=== PATIENT | male | born 1950 ===

== ENCOUNTER 2020-05-26 18:22 | Outpatient (NON) | payer MEDICARE, SELFPAY ==
[2020-05-26 18:51] LABS: Basophils Absolute Auto 0.04 K/mm3 (0.00-0.10); Basophils Percent Auto 0.4 % (0.0-1.0); Eosinophils Percent Auto 2.9 % (1.0-6.0); Hematocrit 33.1 % (37.0-46.0); Hemoglobin 9.7 g/dL (12.4-15.3); Immature Granulocyte Absolute 0.04 K/mm3 (0.00-0.00); Immature Granulocyte Percent A 0.4 % (0.0-0.0); Lymphocytes Absolute Auto 1.89 K/mm3 (1.10-4.50); Lymphocytes Percent Auto 18.5 % (18.0-42.0); Mean Corpuscular HGB Conc 29.3 g/dL (32.0-36.0); Mean Corpuscular Hemoglobin 25.4 pg (27.0-31.0); Mean Corpuscular Volume 86.6 fL (78.0-102.0); Monocytes Absolute Auto 1.04 K/mm3 (0.10-0.90); Monocytes Percent Auto 10.2 % (2.0-11.0); Neutrophils Absolute Auto 6.9 K/mm3 (1.7-7.2); Neutrophils Percent Auto 67.6 % (50.0-70.0); Platelet Count Result 361 K/mm3 (150-420); Red Blood Count 3.82 M/mm3 (4.70-6.10); Red Cell Distribution Width 18.2 % (11.6-14.4); White Blood Count 10.2 K/mm3 (4.8-10.8)
[2020-05-26 19:04] LABS: Alanine Aminotransferase 41 U/L (16-63); Albumin Level 2.5 g/dL (3.4-5.0); Alkaline Phosphatase 94 U/L (46-116); Anion Gap 13 mmol/L (8-16); Aspartate Amino Transferase 24 U/L (15-37); Bilirubin,Total 0.4 mg/dL (0.00-1.00); Blood Urea Nitrogen 19 mg/dL (7-18); Calcium 8.4 mg/dL (8.5-10.1); Carbon Dioxide 22 mmol/L (21-32); Chloride 102 mmol/L (98-108); Estimated Glomerular Filt Rate 56; Glucose 98 mg/dL (70-99); Osmolality Calculated 286 mOsm/kg (285-295); Potassium 4.8 mmol/L (3.5-5.1); Sodium 137 mmol/L (136-145); Total Protein 5.5 g/dL (6.4-8.2); Vancomycin Trough 15.6 ug/mL (10.0-15.0)
[2020-05-26 19:16] LABS: INR 1.6; Prothrombin Time 16.4 Seconds (9.64-11.0)
[2020-05-26 22:49] LABS: Gentamicin Trough 1.2 ug/mL (<1.0)
== END 2020-05-26 18:23 ==
DX: I38 Endocarditis, valve unspecified (principal)
CPT/HCPCS: 36415; 80053; 80170; 80202; 85025; 85610